=== PATIENT | male | born 1945 | race Caucasian/White ===

== ENCOUNTER 2018-12-21 15:53 | Inpatient (IN) | payer MEDICARE, OTHER ==
[~2018-12-21] VITALS: Ht 167.6 cm; Wt 79.5 kg
[2018-12-21] MEDS ORDERED: MORPHINE SULFATE 4 MG/ML CPJ (NOT FOR IM USE) IV STA (17:26)
[2018-12-21] MEDS ORDERED: METHYLPREDNISOLONE SOD SUCC 125 MG/2 ML VIAL IV STA (17:26)
[2018-12-21] MEDS ORDERED: ONDANSETRON HCL 4MG/2ML INJ IV STA (17:26)
[2018-12-21] MEDS ORDERED: IPRATROPIUM/ALBUTEROL 0.5-3(2.5)MG/3ML NEB HHN ONE (17:30)
[2018-12-21] MEDS ORDERED: FUROSEMIDE 40MG/4ML VIAL IVP ONE (17:30)
[2018-12-21] MEDS ORDERED: ASPIRIN 81MG TABLET PO ONE (17:30)
[2018-12-21] MEDS ORDERED: LEVOFLOXACIN 750MG PREMIX 150 ML IV ONE (17:30)
[2018-12-21 17:57] LABS: BG BASE EXCESS -6.5 mmol/L (-2.0-2.0); BG CARBOXYHEMOGLOBIN 2.5 % (0.5-1.5); BG DEOXYHEMOGLOBIN 5.4 % (0.0-5.0); BG FRACTION INSPIRED OXYGEN 30; BG HCO3 ACT 18.5 mmol/L (22.0-26.0); BG METHEMOGLOBIN 0.6 % (0.0-1.5); BG OXYGEN SATURATION 94.4 % (92.0-98.5); BG OXYHEMOGLOBIN 91.5 % (94.0-97.0); BG PCO2 34.3 mmHg (35.0-45.0); BG SAMPLE SITE RIGHT BRACHIAL; BG TOTAL HEMOGLOBIN 5.6 g/dL (12.0-18.0); BG VENT MODE NASAL CANNULA
[2018-12-21 18:03] LABS: BASOPHILS % 0.1 % (0.0-2.0); EOSINOPHILS % 2.4 % (0.0-5.0); MEAN CORPUSCULAR HEMOGLOBIN 22.4 pg (28.0-32.0); MEAN CORPUSCULAR VOLUME 73.6 fL (80.0-94.0); MEAN PLATELET VOLUME 7.7 fl (7.4-10.4); MONOCYTES % 9.9 % (2.0-8.0); NEUTROPHILS % 61.6 % (40.0-76.0); PLATELET 126 x1000/uL (130-400); RED BLOOD CELL COUNT 2.25 mill/uL (4.7-6.1); RED CELL DISTRIBUTION WIDTH 17.7 % (11.6-14.6)
[2018-12-21 18:05] LABS: CHLORIDE 117 mEq/L (98-107)
[2018-12-21 18:07] LABS: HEMATOCRIT. 16.5 % (42.0-52.0); INR 1.2; PARTIAL THROMBOPLASTIN TIME 32.5 sec (23.4-31.0); PROTHROMBIN TIME 11.9 sec (9.6-11.0)
[2018-12-21 18:09] LABS: ETHANOL BLOOD < 10 mg/dL
[2018-12-21 20:09] LABS: CLARITY URINE CLOUDY (CLEAR); COLOR URINE YELLOW (YELLOW); KETONES URINE NEGATIVE (NEGATIVE); LEUKOCYTE ESTERASE URINE 2+ (NEGATIVE); NITRITE URINE NEGATIVE (NEGATIVE); OCCULT BLOOD URINE NEGATIVE (NEGATIVE); PROTEIN URINE 3+ (NEGATIVE); SPECIFIC GRAVITY URINE 1.019 (1.005-1.030); UROBILINOGEN URINE 0.2 E.U./dL (0.2-1.0)
[2018-12-21 20:39] LABS: METHADONE URINE SCREEN NEGATIVE (NEGATIVE); OPIATES URINE SCREEN NEGATIVE (NEGATIVE)
[2018-12-21 20:40] LABS: *AMPHETAMINES SCREEN URINE NEGATIVE (NEGATIVE); *BARBITURATES SCREEN URINE NEGATIVE (NEGATIVE); *BENZODIAZEPINES SCREEN URINE NEGATIVE (NEGATIVE); *COCAINE SCREEN URINE NEGATIVE (NEGATIVE); CANNABINOID URINE SCREEN NEGATIVE (NEGATIVE); PHENCYCLIDINE URINE SCREEN NEGATIVE (NEGATIVE)
[2018-12-22] VITALS (14 sets, daily range): BP systolic 141–184; BP diastolic 60–123
[2018-12-22] MEDS ORDERED: ONDANSETRON HCL 4MG/2ML INJ IV PRN (01:45)
[2018-12-22] MEDS: METHYLPREDNISOLONE SOD SUCC 40 MG/ML VIAL IV SCH ×3 (06:31→21:46)
[2018-12-22 07:24] LABS: BASOPHILS % 0.3 % (0.0-2.0); EOSINOPHILS % 0.2 % (0.0-5.0); LYMPHOCYTES % 12.8 % (20.0-50.0); MEAN CORPUSCULAR HEMOGLOBIN 23.3 pg (28.0-32.0); MEAN CORPUSCULAR VOLUME 75.6 fL (80.0-94.0); MEAN PLATELET VOLUME 7.5 fl (7.4-10.4); MONOCYTES % 8.3 % (2.0-8.0); NEUTROPHILS % 78.4 % (40.0-76.0); PLATELET 131 x1000/uL (130-400); RED BLOOD CELL COUNT 2.55 mill/uL (4.7-6.1); RED CELL DISTRIBUTION WIDTH 18.5 % (11.6-14.6)
[2018-12-22 08:02] LABS: HEMOGLOBIN. 5.9 g/dL (14.0-18.0)
[2018-12-22 08:03] LABS: HEMATOCRIT. 19.3 % (42.0-52.0)
[2018-12-22] MEDS: PANTOPRAZOLE SODIUM 40 MG/VIAL IV SCH (09:00)
[2018-12-22] MEDS: IPRATROPIUM/ALBUTEROL 0.5-3(2.5)MG/3ML NEB HHN SCH ×2 (09:44→15:45)
[2018-12-22] MEDS ORDERED: SORBITOL 70% SOLN 30ML PO NR ×2 (14:00→20:00)
[2018-12-22] MEDS ORDERED: SORBITOL 70% SOLN 30ML PO ONE ×2 (14:00→20:00)
[2018-12-22] MEDS ORDERED: FUROSEMIDE 20MG/2ML VIAL IVP NR (14:00)
[2018-12-22] MEDS ORDERED: FUROSEMIDE 40MG/4ML VIAL IVP NR (14:15)
[2018-12-22] MEDS ORDERED: VANCOMYCIN 1,750 MG in DEXT 5% WATER 250 ML IV NR (16:00)
[2018-12-22] MEDS: ACETAMINOPHEN 325MG TABLET PO PRN (16:35)
[2018-12-22] MEDS ORDERED: PHEN100C4 MT (17:29)
[2018-12-22] MEDS ORDERED: SUCR1TAB30 MT (17:29)
[2018-12-22] MEDS ORDERED: LACT10SO6 MT (17:29)
[2018-12-22] MEDS ORDERED: MULT-1146 MT (17:29)
[2018-12-22] MEDS ORDERED: AMLO10TA80 MT (17:29)
[2018-12-22] MEDS ORDERED: MEDICATION NOT ON FORMULARY EA (Lactulose 15 ML) MT SCH (17:30)
[2018-12-22] MEDS ORDERED: MEDICATION NOT ON FORMULARY EA (Multivitamin (Multi Vitamin Daily) 1 TAB) MT SCH (17:30)
[2018-12-22] MEDS ORDERED: DEXTROSE 50% WATER 50ML SYRINGE IV PRN (17:45)
[2018-12-22] MEDS ORDERED: LACTULOSE 20G/30ML UDC PO PRN (17:45)
[2018-12-22] MEDS: AMLODIPINE 10MG TABLET PO SCH ×2 (17:54→20:23)
[2018-12-22] MEDS: PHENYTOIN SODIUM EXTENDED 100MG CAPSULE PO SCH (17:54)
[2018-12-22 19:29] LABS: HEPATITIS B SURFACE ANTIGEN NEGATIVE
[2018-12-22 19:59] LABS: HEPATITIS A AB IGM NEGATIVE (NEGATIVE)
[2018-12-22] MEDS ORDERED: IRON SUCROSE COMPLEX 100 MG/5 ML ML IV NR (20:00)
[2018-12-22] MEDS: SUCRALFATE 1G TABLET PO SCH (20:23)
[2018-12-22 20:46] LABS: HEMOGLOBIN 8.3 g/dL (14.0-18.0)
[2018-12-22 20:54] LABS: INR 1.1; PROTHROMBIN TIME 11.4 sec (9.6-11.0)
[2018-12-22] MEDS ORDERED: SUCRALFATE MT SCH (21:00)
[2018-12-22] MEDS: BLOOD SUGAR DIAGNOSTIC STRIP TEST SCH (21:40)
[2018-12-22] MEDS: INSULIN LISPRO 100 UNITS/ML SUBCUT SCH (21:59)
[2018-12-22] MEDS: CLONIDINE 0.1MG TABLET PO PRN (23:41)
[2018-12-23] VITALS (17 sets, daily range): BP systolic 142–168; BP diastolic 78–95
[2018-12-23] MEDS: IPRATROPIUM/ALBUTEROL 0.5-3(2.5)MG/3ML NEB HHN SCH ×3 (01:17→21:35)
[2018-12-23] MEDS: CLONIDINE 0.1MG TABLET PO PRN (04:51)
[2018-12-23] MEDS: METHYLPREDNISOLONE SOD SUCC 40 MG/ML VIAL IV SCH ×3 (06:15→22:02)
[2018-12-23] MEDS: SUCRALFATE 1G TABLET PO SCH ×4 (06:15→20:24)
[2018-12-23] MEDS: BLOOD SUGAR DIAGNOSTIC STRIP TEST SCH ×4 (06:16→20:41)
[2018-12-23] MEDS: INSULIN LISPRO 100 UNITS/ML SUBCUT SCH ×4 (07:20→20:44)
[2018-12-23 08:38] LABS: BASOPHILS % 0.1 % (0.0-2.0); EOSINOPHILS % 0.1 % (0.0-5.0); HEMATOCRIT. 30.4 % (42.0-52.0); HEMOGLOBIN. 9.8 g/dL (14.0-18.0); LYMPHOCYTES % 7.2 % (20.0-50.0); MEAN CORPUSCULAR HEMOGLOBIN 25.7 pg (28.0-32.0); MEAN CORPUSCULAR VOLUME 80.1 fL (80.0-94.0); MEAN PLATELET VOLUME 8.6 fl (7.4-10.4); MONOCYTES % 5.5 % (2.0-8.0); NEUTROPHILS % 87.1 % (40.0-76.0); PLATELET 111 x1000/uL (130-400); RED CELL DISTRIBUTION WIDTH 20.1 % (11.6-14.6)
[2018-12-23] MEDS: PANTOPRAZOLE SODIUM 40 MG/VIAL IV SCH (08:45)
[2018-12-23] MEDS ORDERED: FUROSEMIDE 40MG/4ML VIAL IVP SCH (08:45)
[2018-12-23] MEDS ORDERED: ASPI-1159 MT (10:33)
[2018-12-23 11:32] LABS: BG BILEVEL POS AIRWAY PRESSURE ST=14/5; BG CARBOXYHEMOGLOBIN 0.4 % (0.5-1.5); BG DEOXYHEMOGLOBIN 2.8 % (0.0-5.0); BG FRACTION INSPIRED OXYGEN 40; BG HCO3 ACT 19.9 mmol/L (22.0-26.0); BG METHEMOGLOBIN 0.3 % (0.0-1.5); BG OXYGEN SATURATION 97.2 % (92.0-98.5); BG OXYHEMOGLOBIN 96.5 % (94.0-97.0); BG PCO2 41.1 mmHg (35.0-45.0); BG PH 7.303 (7.350-7.450); BG PO2 101.2 mmHg (75.0-100.0); BG PRESSURE SUPPORT 9; BG SAMPLE SITE LEFT RADIAL; BG TOTAL HEMOGLOBIN 9.8 g/dL (12.0-18.0); BG VENT MODE MASK - BIPAP; BG VENT RATE 20 set
[2018-12-23] MEDS ORDERED: LIDOCAINE HCL 1% 20ML VIAL (Pyxis) INJ ONE (12:47)
[2018-12-23] MEDS ORDERED: SODIUM BICARBONATE 4% (2.4MEQ) 5ML VIAL IV ONE (12:48)
[2018-12-23] MEDS: AMLODIPINE 10MG TABLET PO SCH ×2 (14:59→20:24)
[2018-12-23] MEDS: CEFEPIME 1,000 MG in DEXTROSE 5% WATER 50 ML IV SCH (14:59)
[2018-12-23] MEDS: MULTIVITAMINS,THER W-MINERALS TABLET PO SCH (15:00)
[2018-12-23] MEDS: PHENYTOIN SODIUM EXTENDED 100MG CAPSULE PO SCH ×2 (15:00→16:53)
[2018-12-23] MEDS ORDERED: VANCOMYCIN 1 G PREMIX 200 ML IV SCH (16:00)
[2018-12-23] MEDS: VANCOMYCIN 750 MG PREMIX 150 ML IV SCH (16:54)
[2018-12-23] MEDS ORDERED: SORBITOL 70% SOLN 30ML PO NR ×2 (19:30→22:00)
[2018-12-23] MEDS: PROPRANOLOL HCL 10MG TABLET PO SCH (20:24)
[2018-12-24] VITALS (11 sets, daily range): BP systolic 121–166; BP diastolic 74–126
[2018-12-24] MEDS: CEFEPIME 1,000 MG in DEXTROSE 5% WATER 50 ML IV SCH ×2 (01:36→12:24)
[2018-12-24] MEDS: BLOOD SUGAR DIAGNOSTIC STRIP TEST SCH ×4 (06:07→20:45)
[2018-12-24] MEDS: SUCRALFATE 1G TABLET PO SCH ×4 (06:17→20:33)
[2018-12-24] MEDS: METHYLPREDNISOLONE SOD SUCC 40 MG/ML VIAL IV SCH ×3 (06:17→21:59)
[2018-12-24] MEDS: INSULIN LISPRO 100 UNITS/ML SUBCUT SCH ×4 (07:20→20:34)
[2018-12-24] MEDS: IPRATROPIUM/ALBUTEROL 0.5-3(2.5)MG/3ML NEB HHN SCH ×2 (07:51→16:26)
[2018-12-24] MEDS: AMLODIPINE 10MG TABLET PO SCH ×2 (08:50→20:32)
[2018-12-24] MEDS: PHENYTOIN SODIUM EXTENDED 100MG CAPSULE PO SCH ×2 (08:51→17:19)
[2018-12-24] MEDS: MULTIVITAMINS,THER W-MINERALS TABLET PO SCH (08:51)
[2018-12-24] MEDS: PROPRANOLOL HCL 10MG TABLET PO SCH ×2 (08:51→20:33)
[2018-12-24] MEDS: PANTOPRAZOLE SODIUM 40 MG/VIAL IV SCH (08:52)
[2018-12-24] MEDS: ACETAMINOPHEN 325MG TABLET PO PRN (08:52)
[2018-12-24] MEDS ORDERED: FUROSEMIDE 40MG/4ML VIAL IVP NR (10:00)
[2018-12-24] MEDS: ISOSORBIDE MONONITRATE 30MG TABLET SR 24HR PO SCH (10:49)
[2018-12-24 11:13] LABS: HEMATOCRIT 33.1 % (42.0-52.0); HEMOGLOBIN 10.5 g/dL (14.0-18.0); MEAN CORPUSCULAR HEMOGLOBIN 25.5 pg (28.0-32.0); MEAN CORPUSCULAR VOLUME 80.7 fL (80.0-94.0); PLATELET 106 x1000/uL (130-400); RED CELL DISTRIBUTION WIDTH 20.4 % (11.6-14.6)
[2018-12-24 11:19] LABS: CHLORIDE 118 mEq/L (98-107)
[2018-12-24] MEDS: VANCOMYCIN 750 MG PREMIX 150 ML IV SCH (12:25)
[2018-12-25] VITALS (12 sets, daily range): BP systolic 116–157; BP diastolic 73–94
[2018-12-25] MEDS: CEFEPIME 1,000 MG in DEXTROSE 5% WATER 50 ML IV SCH ×2 (01:00→12:54)
[2018-12-25] MEDS: IPRATROPIUM/ALBUTEROL 0.5-3(2.5)MG/3ML NEB HHN SCH ×3 (01:03→17:46)
[2018-12-25] MEDS: SUCRALFATE 1G TABLET PO SCH ×4 (06:26→21:59)
[2018-12-25] MEDS: METHYLPREDNISOLONE SOD SUCC 40 MG/ML VIAL IV SCH ×3 (06:26→22:00)
[2018-12-25] MEDS: VANCOMYCIN 750 MG PREMIX 150 ML IV SCH (06:26)
[2018-12-25] MEDS: BLOOD SUGAR DIAGNOSTIC STRIP TEST SCH ×4 (06:40→21:00)
[2018-12-25 07:07] LABS: CHLORIDE 116 mEq/L (98-107)
[2018-12-25 07:16] LABS: HEMATOCRIT. 31.2 % (42.0-52.0); HEMOGLOBIN. 9.8 g/dL (14.0-18.0); LYMPHOCYTES % 8.6 % (20.0-50.0); MEAN CORPUSCULAR HEMOGLOBIN 25.7 pg (28.0-32.0); MEAN CORPUSCULAR VOLUME 81.7 fL (80.0-94.0); MEAN PLATELET VOLUME 8.4 fl (7.4-10.4); MONOCYTES % 6.2 % (2.0-8.0); NEUTROPHILS % 85.2 % (40.0-76.0); PLATELET 108 x1000/uL (130-400); RED BLOOD CELL COUNT 3.82 mill/uL (4.7-6.1); RED CELL DISTRIBUTION WIDTH 20.4 % (11.6-14.6)
[2018-12-25] MEDS: INSULIN LISPRO 100 UNITS/ML SUBCUT SCH ×4 (07:20→22:03)
[2018-12-25] MEDS: PANTOPRAZOLE SODIUM 40 MG/VIAL IV SCH (08:30)
[2018-12-25] MEDS: AMLODIPINE 10MG TABLET PO SCH ×2 (09:00→22:00)
[2018-12-25] MEDS: PROPRANOLOL HCL 10MG TABLET PO SCH ×2 (09:00→22:00)
[2018-12-25] MEDS: PHENYTOIN SODIUM EXTENDED 100MG CAPSULE PO SCH ×2 (09:00→17:43)
[2018-12-25] MEDS: FUROSEMIDE 40MG/4ML VIAL IVP SCH (10:30)
[2018-12-25] MEDS: ISOSORBIDE MONONITRATE 30MG TABLET SR 24HR PO SCH (17:43)
[2018-12-25] MEDS: MULTIVITAMINS,THER W-MINERALS TABLET PO SCH (17:43)
[2018-12-25] MEDS: MORPHINE SULFATE 4 MG/ML CPJ (NOT FOR IM USE) IV PRN (21:03)
[2018-12-26] VITALS (13 sets, daily range): BP systolic 122–152; BP diastolic 49–86
[2018-12-26] MEDS: VANCOMYCIN 750 MG PREMIX 150 ML IV SCH ×2 (00:35→22:11)
[2018-12-26] MEDS: IPRATROPIUM/ALBUTEROL 0.5-3(2.5)MG/3ML NEB HHN SCH ×3 (00:49→14:24)
[2018-12-26] MEDS: CEFEPIME 1,000 MG in DEXTROSE 5% WATER 50 ML IV SCH ×2 (01:53→12:36)
[2018-12-26] MEDS: MORPHINE SULFATE 4 MG/ML CPJ (NOT FOR IM USE) IV PRN ×2 (02:02→08:39)
[2018-12-26] MEDS: METHYLPREDNISOLONE SOD SUCC 40 MG/ML VIAL IV SCH ×3 (06:23→22:11)
[2018-12-26] MEDS: SUCRALFATE 1G TABLET PO SCH ×4 (06:23→20:36)
[2018-12-26] MEDS: BLOOD SUGAR DIAGNOSTIC STRIP TEST SCH ×4 (06:28→20:31)
[2018-12-26 07:03] LABS: HEMATOCRIT. 30.2 % (42.0-52.0); HEMOGLOBIN. 9.6 g/dL (14.0-18.0); MEAN CORPUSCULAR HEMOGLOBIN 25.9 pg (28.0-32.0); MEAN CORPUSCULAR VOLUME 81.6 fL (80.0-94.0); MEAN PLATELET VOLUME 7.8 fl (7.4-10.4); PLATELET 110 x1000/uL (130-400); RED CELL DISTRIBUTION WIDTH 21.3 % (11.6-14.6)
[2018-12-26] MEDS: INSULIN LISPRO 100 UNITS/ML SUBCUT SCH ×4 (07:20→20:39)
[2018-12-26] MEDS: PANTOPRAZOLE SODIUM 40 MG/VIAL IV SCH (08:38)
[2018-12-26] MEDS: FUROSEMIDE 40MG/4ML VIAL IVP SCH (08:39)
[2018-12-26] MEDS: PHENYTOIN SODIUM EXTENDED 100MG CAPSULE PO SCH ×2 (08:39→16:48)
[2018-12-26] MEDS: ISOSORBIDE MONONITRATE 30MG TABLET SR 24HR PO SCH (08:40)
[2018-12-26] MEDS: PROPRANOLOL HCL 10MG TABLET PO SCH ×2 (08:40→20:36)
[2018-12-26] MEDS: MULTIVITAMINS,THER W-MINERALS TABLET PO SCH (08:40)
[2018-12-26] MEDS: AMLODIPINE 10MG TABLET PO SCH ×2 (08:41→20:36)
[2018-12-26] MEDS ORDERED: SODIUM BICARBONATE 4% (2.4MEQ) 5ML VIAL IV ONE (09:21)
[2018-12-26 12:14] LABS: PLATELET ESTIMATE SLIGHTLY DECREASED
[2018-12-27] VITALS (13 sets, daily range): BP systolic 119–159; BP diastolic 59–84
[2018-12-27] MEDS: IPRATROPIUM/ALBUTEROL 0.5-3(2.5)MG/3ML NEB HHN SCH ×3 (01:11→15:47)
[2018-12-27] MEDS: CEFEPIME 1,000 MG in DEXTROSE 5% WATER 50 ML IV SCH ×2 (01:20→12:18)
[2018-12-27 05:45] LABS: HEMATOCRIT. 30.3 % (42.0-52.0); HEMOGLOBIN. 9.5 g/dL (14.0-18.0); MEAN CORPUSCULAR HEMOGLOBIN 25.4 pg (28.0-32.0); MEAN CORPUSCULAR VOLUME 81.3 fL (80.0-94.0); MEAN PLATELET VOLUME 8.8 fl (7.4-10.4); PLATELET 85 x1000/uL (130-400); RED BLOOD CELL COUNT 3.73 mill/uL (4.7-6.1); RED CELL DISTRIBUTION WIDTH 21.8 % (11.6-14.6)
[2018-12-27] MEDS: METHYLPREDNISOLONE SOD SUCC 40 MG/ML VIAL IV SCH ×3 (05:59→21:04)
[2018-12-27] MEDS: SUCRALFATE 1G TABLET PO SCH ×4 (05:59→21:03)
[2018-12-27] MEDS: BLOOD SUGAR DIAGNOSTIC STRIP TEST SCH ×4 (06:00→21:00)
[2018-12-27] MEDS: INSULIN LISPRO 100 UNITS/ML SUBCUT SCH ×4 (08:38→21:05)
[2018-12-27] MEDS: ISOSORBIDE MONONITRATE 30MG TABLET SR 24HR PO SCH (08:39)
[2018-12-27] MEDS: FUROSEMIDE 40MG/4ML VIAL IVP SCH (08:39)
[2018-12-27] MEDS: MULTIVITAMINS,THER W-MINERALS TABLET PO SCH (08:39)
[2018-12-27] MEDS: PHENYTOIN SODIUM EXTENDED 100MG CAPSULE PO SCH ×2 (08:39→17:54)
[2018-12-27] MEDS: AMLODIPINE 10MG TABLET PO SCH ×2 (08:39→21:03)
[2018-12-27] MEDS: PANTOPRAZOLE SODIUM 40 MG/VIAL IV SCH (08:39)
[2018-12-27] MEDS: PROPRANOLOL HCL 10MG TABLET PO SCH ×2 (08:40→21:00)
[2018-12-27] MEDS ORDERED: DOCUSATE SODIUM 250MG CAPSULE PO PRN (10:00)
[2018-12-27] MEDS: MORPHINE SULFATE 4 MG/ML CPJ (NOT FOR IM USE) IV PRN ×2 (10:34→19:28)
[2018-12-27] MEDS: DOCUSATE SODIUM 250MG CAPSULE PO SCH ×2 (10:37→17:54)
[2018-12-27 21:33] LABS: PLATELET ESTIMATE DECREASED
[2018-12-27] MEDS: VANCOMYCIN 750 MG PREMIX 150 ML IV SCH (22:38)
[2018-12-28] VITALS (12 sets, daily range): BP systolic 136–158; BP diastolic 74–89
[2018-12-28] MEDS: IPRATROPIUM/ALBUTEROL 0.5-3(2.5)MG/3ML NEB HHN SCH ×3 (00:25→16:27)
[2018-12-28] MEDS: CEFEPIME 1,000 MG in DEXTROSE 5% WATER 50 ML IV SCH ×2 (01:01→13:36)
[2018-12-28] MEDS: METHYLPREDNISOLONE SOD SUCC 40 MG/ML VIAL IV SCH ×3 (06:07→21:16)
[2018-12-28] MEDS: SUCRALFATE 1G TABLET PO SCH ×4 (06:07→21:16)
[2018-12-28] MEDS: MORPHINE SULFATE 4 MG/ML CPJ (NOT FOR IM USE) IV PRN ×2 (06:07→21:17)
[2018-12-28] MEDS: BLOOD SUGAR DIAGNOSTIC STRIP TEST SCH ×4 (06:50→21:17)
[2018-12-28] MEDS: INSULIN LISPRO 100 UNITS/ML SUBCUT SCH ×4 (07:22→21:19)
[2018-12-28] MEDS: PANTOPRAZOLE SODIUM 40 MG/VIAL IV SCH (08:32)
[2018-12-28] MEDS: ISOSORBIDE MONONITRATE 30MG TABLET SR 24HR PO SCH (08:32)
[2018-12-28] MEDS: PHENYTOIN SODIUM EXTENDED 100MG CAPSULE PO SCH ×2 (08:32→17:22)
[2018-12-28] MEDS: DOCUSATE SODIUM 250MG CAPSULE PO SCH ×2 (08:32→17:22)
[2018-12-28] MEDS: FUROSEMIDE 40MG/4ML VIAL IVP SCH (08:32)
[2018-12-28] MEDS: PROPRANOLOL HCL 10MG TABLET PO SCH ×2 (08:33→21:17)
[2018-12-28] MEDS: AMLODIPINE 10MG TABLET PO SCH ×2 (08:34→21:17)
[2018-12-28] MEDS: MULTIVITAMINS,THER W-MINERALS TABLET PO SCH (08:34)
[2018-12-28] MEDS ORDERED: LACTULOSE 20G/30ML UDC PO NR (10:45)
[2018-12-28] MEDS: CLONIDINE 0.1MG TABLET PO PRN (17:22)
[2018-12-28] MEDS: VANCOMYCIN 750 MG PREMIX 150 ML IV SCH (23:45)
[2018-12-29] VITALS (10 sets, daily range): BP systolic 136–167; BP diastolic 72–92
[2018-12-29] MEDS: IPRATROPIUM/ALBUTEROL 0.5-3(2.5)MG/3ML NEB HHN SCH ×3 (00:26→15:39)
[2018-12-29] MEDS: ACETAMINOPHEN 325MG TABLET PO PRN (01:41)
[2018-12-29] MEDS: CEFEPIME 1,000 MG in DEXTROSE 5% WATER 50 ML IV SCH ×2 (01:41→12:12)
[2018-12-29] MEDS: BLOOD SUGAR DIAGNOSTIC STRIP TEST SCH ×2 (06:44→11:31)
[2018-12-29] MEDS: SUCRALFATE 1G TABLET PO SCH ×2 (06:44→11:30)
[2018-12-29] MEDS: METHYLPREDNISOLONE SOD SUCC 40 MG/ML VIAL IV SCH ×2 (06:44→13:44)
[2018-12-29 06:48] LABS: BASOPHILS % 0.1 % (0.0-2.0); EOSINOPHILS % 0.3 % (0.0-5.0); HEMATOCRIT. 27.8 % (42.0-52.0); HEMOGLOBIN. 8.8 g/dL (14.0-18.0); LYMPHOCYTES % 7.5 % (20.0-50.0); MEAN CORPUSCULAR VOLUME 81.8 fL (80.0-94.0); MEAN PLATELET VOLUME 7.8 fl (7.4-10.4); MONOCYTES % 6.6 % (2.0-8.0); NEUTROPHILS % 85.5 % (40.0-76.0); PLATELET 82 x1000/uL (130-400); RED CELL DISTRIBUTION WIDTH 22.5 % (11.6-14.6)
[2018-12-29] MEDS: PHENYTOIN SODIUM EXTENDED 100MG CAPSULE PO SCH (08:23)
[2018-12-29] MEDS: MULTIVITAMINS,THER W-MINERALS TABLET PO SCH (08:23)
[2018-12-29] MEDS: FUROSEMIDE 40MG/4ML VIAL IVP SCH (08:24)
[2018-12-29] MEDS: PANTOPRAZOLE SODIUM 40 MG/VIAL IV SCH (08:24)
[2018-12-29] MEDS: AMLODIPINE 10MG TABLET PO SCH (08:24)
[2018-12-29] MEDS: DOCUSATE SODIUM 250MG CAPSULE PO SCH (08:24)
[2018-12-29] MEDS: INSULIN LISPRO 100 UNITS/ML SUBCUT SCH ×2 (08:28→12:12)
[2018-12-29] MEDS: PROPRANOLOL HCL 10MG TABLET PO SCH (08:39)
[2018-12-29] MEDS: ISOSORBIDE MONONITRATE 30MG TABLET SR 24HR PO SCH (10:30)
[2018-12-29] MEDS ORDERED: SORBITOL 70% SOLN 30ML PO NR (10:45)
== END 2018-12-29 16:30 | DRG 280 ==
LOC: ER 16:21 → 8WST 18:51 → EDBEDREQ 18:59 → EDBEDREQTM 18:59 → ENRESERV 23:27 → 3WST 12-22 14:50
PROVIDERS: ADMIT Internal Medicine; ATTEND Internal Medicine
PROC: 30233N1 Transfusion of Nonautologous Red Blood Cells into Peripheral Vein, Percutaneous Approach (ICD-10-PCS; 2018-12-21)
PROC: 0W993ZZ Drainage of Right Pleural Cavity, Percutaneous Approach (ICD-10-PCS; principal; 2018-12-23)
PROC: 5A09357 Assistance with Respiratory Ventilation, Less than 24 Consecutive Hours, Continuous Positive Airway Pressure (ICD-10-PCS; 2018-12-23)
PROC: 5A09357 Assistance with Respiratory Ventilation, Less than 24 Consecutive Hours, Continuous Positive Airway Pressure (ICD-10-PCS; 2018-12-24)
PROC: 0W9G3ZZ Drainage of Peritoneal Cavity, Percutaneous Approach (ICD-10-PCS; 2018-12-25)
PROC: 0W993ZZ Drainage of Right Pleural Cavity, Percutaneous Approach (ICD-10-PCS; 2018-12-26)
DX: I21.4 Non-ST elevation (NSTEMI) myocardial infarction (principal); I50.33 Acute on chronic diastolic (congestive) heart failure; E43 Unspecified severe protein-calorie malnutrition; J18.9 Pneumonia, unspecified organism; J96.20 Acute and chronic respiratory failure, unspecified whether with hypoxia or hypercapnia; J44.1 Chronic obstructive pulmonary disease with (acute) exacerbation; N39.0 Urinary tract infection, site not specified; R18.8 Other ascites; I13.0 Hypertensive heart and chronic kidney disease with heart failure and stage 1 through stage 4 chronic kidney disease, or unspecified chronic kidney disease; J44.0 Chronic obstructive pulmonary disease with (acute) lower respiratory infection; N17.9 Acute kidney failure, unspecified; K92.2 Gastrointestinal hemorrhage, unspecified; J91.8 Pleural effusion in other conditions classified elsewhere; K74.60 Unspecified cirrhosis of liver; B18.2 Chronic viral hepatitis C; D64.9 Anemia, unspecified; N18.9 Chronic kidney disease, unspecified; D50.9 Iron deficiency anemia, unspecified; D69.6 Thrombocytopenia, unspecified; E11.22 Type 2 diabetes mellitus with diabetic chronic kidney disease; E78.00 Pure hypercholesterolemia, unspecified; E78.5 Hyperlipidemia, unspecified; E87.8 Other disorders of electrolyte and fluid balance, not elsewhere classified; F20.9 Schizophrenia, unspecified; F31.9 Bipolar disorder, unspecified; I27.20 Pulmonary hypertension, unspecified; B96.4 Proteus (mirabilis) (morganii) as the cause of diseases classified elsewhere; K21.9 Gastro-esophageal reflux disease without esophagitis; N40.0 Benign prostatic hyperplasia without lower urinary tract symptoms; Y95 Nosocomial condition; Z79.84 Long term (current) use of oral hypoglycemic drugs; Z99.81 Dependence on supplemental oxygen; Z87.891 Personal history of nicotine dependence; Z68.28 Body mass index [BMI] 28.0-28.9, adult
CPT/HCPCS: 32555; 36415; 36600; 49083; 71045; 71250; 76705; 80048; 80076; 80202; 80305; 80320; 82375; 82805; 82962; 83540; 83550; 83605; 83735; 83880; 84134; 84484; 85014; 85018; 85027; 85049; 85384; 86705; 86709; 86803; 86850; 86900; 86920; 87070; 87077; 87186; 87340; 93005; 93306; 93970; 94640; 94660; 96365; 96366; 96375; 99285; C9113; J0692; J1815; J1940; J1956; J2270; J2405; J2920; J2930; J3370; J3490; J7040; J7050; J7060; J7620; P9016; G0480

== ENCOUNTER 2019-01-12 08:28 | Inpatient (IN) | payer MEDICARE, OTHER ==
[~2019-01-12] VITALS: Ht 172.7 cm; Wt 78.5 kg
[2019-01-12] VITALS (48 sets, daily range): BP systolic 115–184; BP diastolic 47–98
[~2019-01-12 08:28] MED LIST: AMLO10TA80 MT; ASPI-1159 MT; LACT10SO6 MT; MULT-1146 MT; PHEN100C4 MT; SUCR1TAB30 MT
[2019-01-12] MEDS ORDERED: ATROPINE SULFATE 1MG/10ML SYR ONE (08:32)
[2019-01-12] MEDS ORDERED: SODIUM CHLORIDE 0.9% 1,000 ML IV ONE (08:36)
[2019-01-12] MEDS ORDERED: DOPAMINE 400MG/250ML PREMIX 250 ML IV PRN ×2 (08:36→11:30)
[2019-01-12] MEDS ORDERED: ALBUTEROL (0.083%) 2.5MG/3ML NEB HHN STA (08:36)
[2019-01-12] MEDS ORDERED: ATROPINE SULFATE 1MG/ML VIAL IV PRN (08:45)
[2019-01-12] MEDS ORDERED: CALCIUM GLUCONATE 1,000 MG in DEXT 5% WATER 100 ML IV ONE (08:45)
[2019-01-12] MEDS ORDERED: CEFTRIAXONE 2 G PREMIX 50 ML IV ONE (08:45)
[2019-01-12] MEDS ORDERED: SODIUM BICARBONATE 8.4% 1 MEQ/ML 50ML SYR IV ONE (08:45)
[2019-01-12] MEDS ORDERED: PIPERACILLIN/TAZOBACTAM 3.375GM/50ML PREMIX IV ONE (09:00)
[2019-01-12 09:07] LABS: BG BASE EXCESS -7.9 mmol/L (-2.0-2.0); BG CARBOXYHEMOGLOBIN 2.1 % (0.5-1.5); BG DEOXYHEMOGLOBIN 0.2 % (0.0-5.0); BG HCO3 ACT 23.5 mmol/L (22.0-26.0); BG METHEMOGLOBIN 0.6 % (0.0-1.5); BG OXYGEN SATURATION 99.8 % (92.0-98.5); BG OXYHEMOGLOBIN 97.1 % (94.0-97.0); BG PCO2 90.6 mmHg (35.0-45.0); BG PH 7.032 (7.350-7.450); BG PO2 410.4 mmHg (75.0-100.0); BG SAMPLE SITE RIGHT RADIAL; BG TOTAL HEMOGLOBIN 9.6 g/dL (12.0-18.0); BG VENT MODE MASK - NRB
[2019-01-12 09:07] LABS: BASOPHILS % 0.6 % (0.0-2.0); EOSINOPHILS % 0.3 % (0.0-5.0); HEMATOCRIT. 31.3 % (42.0-52.0); HEMOGLOBIN. 9.5 g/dL (14.0-18.0); LYMPHOCYTES % 13.7 % (20.0-50.0); MEAN CORPUSCULAR HEMOGLOBIN 25.6 pg (28.0-32.0); MEAN CORPUSCULAR VOLUME 84.2 fL (80.0-94.0); MEAN PLATELET VOLUME 7.3 fl (7.4-10.4); NEUTROPHILS % 80.4 % (40.0-76.0); PLATELET 135 x1000/uL (130-400); RED BLOOD CELL COUNT 3.72 mill/uL (4.7-6.1); RED CELL DISTRIBUTION WIDTH 24.8 % (11.6-14.6)
[2019-01-12 09:13] LABS: CHLORIDE 113 mEq/L (98-107)
[2019-01-12] MEDS ORDERED: PIPERACILLIN/TAZ 3.375G PREMIX 50 ML IV SCH ×2 (09:15→14:00)
[2019-01-12 09:18] LABS: ETHANOL BLOOD < 10 mg/dL; PROTHROMBIN TIME 10.3 sec (9.6-11.0)
[2019-01-12 09:19] LABS: PHOSPHORUS 7.7 mg/dL (2.5-4.9)
[2019-01-12 09:25] LABS: *AMPHETAMINES SCREEN URINE NEGATIVE (NEGATIVE); *BARBITURATES SCREEN URINE NEGATIVE (NEGATIVE); *BENZODIAZEPINES SCREEN URINE NEGATIVE (NEGATIVE); *COCAINE SCREEN URINE NEGATIVE (NEGATIVE); METHADONE URINE SCREEN NEGATIVE (NEGATIVE)
[2019-01-12 09:26] LABS: CANNABINOID URINE SCREEN NEGATIVE (NEGATIVE); OPIATES URINE SCREEN NEGATIVE (NEGATIVE); PHENCYCLIDINE URINE SCREEN NEGATIVE (NEGATIVE)
[2019-01-12] MEDS ORDERED: LIDOCAINE HCL 1% 20ML VIAL (Pyxis) INJ ONE (09:42)
[2019-01-12 09:54] LABS: PLATELET ESTIMATE NORMAL
[2019-01-12] MEDS ORDERED: ONDANSETRON HCL 4MG/2ML INJ IV PRN (11:30)
[2019-01-12] MEDS ORDERED: VANCOMYCIN 1500MG in DEXTROSE 5% WATER 250ML IV SCH (13:00)
[2019-01-12 13:03] LABS: BG BASE EXCESS -8.2 mmol/L (-2.0-2.0); BG BILEVEL POS AIRWAY PRESSURE ST=15/5; BG CARBOXYHEMOGLOBIN 1.9 % (0.5-1.5); BG DEOXYHEMOGLOBIN 1.9 % (0.0-5.0); BG FRACTION INSPIRED OXYGEN 40; BG HCO3 ACT 23.2 mmol/L (22.0-26.0); BG METHEMOGLOBIN 0.3 % (0.0-1.5); BG OXYGEN SATURATION 98.1 % (92.0-98.5); BG OXYHEMOGLOBIN 95.9 % (94.0-97.0); BG PCO2 85.3 mmHg (35.0-45.0); BG PH 7.052 (7.350-7.450); BG PO2 113.1 mmHg (75.0-100.0); BG PRESSURE SUPPORT 10; BG SAMPLE SITE LEFT RADIAL; BG TOTAL HEMOGLOBIN 10.7 g/dL (12.0-18.0); BG VENT MODE MASK - BIPAP; BG VENT RATE 20 set
[2019-01-12] MEDS: SODIUM CHLORIDE 0.9% 1,000 ML IV SCH (13:27)
[2019-01-12] MEDS: FUROSEMIDE 40MG/4ML VIAL IVP SCH (14:21)
[2019-01-12] MEDS: LACTULOSE 20G/30ML UDC PO SCH ×2 (14:21→22:19)
[2019-01-12] MEDS: PIPERACILLIN/TAZ 2.25G PREMIX 50 ML IV SCH ×2 (14:22→17:28)
[2019-01-12] MEDS ORDERED: METHYLPREDNISOLONE SOD SUCC 125 MG/2 ML VIAL IV SCH (14:30)
[2019-01-12 17:22] LABS: BG BASE EXCESS -10.7 mmol/L (-2.0-2.0); BG BILEVEL POS AIRWAY PRESSURE ST=18/5; BG CARBOXYHEMOGLOBIN 1.5 % (0.5-1.5); BG DEOXYHEMOGLOBIN 1.8 % (0.0-5.0); BG FRACTION INSPIRED OXYGEN 40; BG HCO3 ACT 20.4 mmol/L (22.0-26.0); BG METHEMOGLOBIN 0.5 % (0.0-1.5); BG OXYGEN SATURATION 98.2 % (92.0-98.5); BG OXYHEMOGLOBIN 96.2 % (94.0-97.0); BG PCO2 78.1 mmHg (35.0-45.0); BG PH 7.035 (7.350-7.450); BG PO2 119.8 mmHg (75.0-100.0); BG PRESSURE SUPPORT 13; BG SAMPLE SITE LEFT BRACHIAL; BG TOTAL HEMOGLOBIN 10.2 g/dL (12.0-18.0); BG VENT MODE MASK - BIPAP; BG VENT RATE 20 set
[2019-01-12] MEDS: IPRATROPIUM/ALBUTEROL 0.5-3(2.5)MG/3ML NEB HHN SCH ×2 (17:37→20:18)
[2019-01-12] MEDS: METHYLPREDNISOLONE SOD SUCC 40 MG/ML VIAL IV SCH (22:19)
[2019-01-13] VITALS (72 sets, daily range): BP systolic 105–145; BP diastolic 31–111
[2019-01-13] MEDS: IPRATROPIUM/ALBUTEROL 0.5-3(2.5)MG/3ML NEB HHN SCH ×6 (00:49→20:54)
[2019-01-13] MEDS: PIPERACILLIN/TAZ 2.25G PREMIX 50 ML IV SCH ×5 (01:38→23:51)
[2019-01-13] MEDS: HYDROCODONE/ACETAMINOPHEN 5/325MG TABLET PO PRN ×2 (01:43→08:59)
[2019-01-13 05:58] LABS: EOSINOPHILS % 0.2 % (0.0-5.0); HEMATOCRIT. 25.6 % (42.0-52.0); HEMOGLOBIN. 8.2 g/dL (14.0-18.0); LYMPHOCYTES % 7.7 % (20.0-50.0); MEAN CORPUSCULAR HEMOGLOBIN 26.3 pg (28.0-32.0); MEAN PLATELET VOLUME 7.8 fl (7.4-10.4); MONOCYTES % 2.5 % (2.0-8.0); NEUTROPHILS % 89.6 % (40.0-76.0); PLATELET 85 x1000/uL (130-400); RED BLOOD CELL COUNT 3.12 mill/uL (4.7-6.1); RED CELL DISTRIBUTION WIDTH 24.2 % (11.6-14.6)
[2019-01-13] MEDS: METHYLPREDNISOLONE SOD SUCC 40 MG/ML VIAL IV SCH ×3 (06:26→21:50)
[2019-01-13] MEDS: LACTULOSE 20G/30ML UDC PO SCH ×3 (06:26→21:50)
[2019-01-13] MEDS: FUROSEMIDE 40MG/4ML VIAL IVP SCH (08:17)
[2019-01-13] MEDS: SODIUM CHLORIDE 0.9% 1,000 ML IV SCH (08:18)
[2019-01-13 09:26] LABS: BG BASE EXCESS -5.4 mmol/L (-2.0-2.0); BG BILEVEL POS AIRWAY PRESSURE ST=18/5; BG CARBOXYHEMOGLOBIN 0.7 % (0.5-1.5); BG DEOXYHEMOGLOBIN 1.6 % (0.0-5.0); BG FRACTION INSPIRED OXYGEN 40; BG HCO3 ACT 20.1 mmol/L (22.0-26.0); BG METHEMOGLOBIN 0.3 % (0.0-1.5); BG OXYGEN SATURATION 98.4 % (92.0-98.5); BG OXYHEMOGLOBIN 97.4 % (94.0-97.0); BG PCO2 39.2 mmHg (35.0-45.0); BG PH 7.328 (7.350-7.450); BG PO2 107.6 mmHg (75.0-100.0); BG PRESSURE SUPPORT 13; BG SAMPLE SITE RIGHT RADIAL; BG TOTAL HEMOGLOBIN 8.8 g/dL (12.0-18.0); BG VENT MODE MASK - BIPAP; BG VENT RATE 20 set
[2019-01-13] MEDS ORDERED: PROP10TA10 MT (10:55)
[2019-01-13] MEDS ORDERED: PROT40 MT (10:55)
[2019-01-13] MEDS ORDERED: FURO-151 MT (10:55)
[2019-01-13] MEDS ORDERED: ISOS20TA57 PO (10:55)
[2019-01-13] MEDS ORDERED: DOCU250C14 MT (10:55)
[2019-01-13] MEDS: ISOSORBIDE MONONITRATE 30MG TABLET SR 24HR PO SCH (12:00)
[2019-01-13] MEDS: PROPRANOLOL HCL 10MG TABLET PO SCH ×2 (12:00→21:51)
[2019-01-13] MEDS ORDERED: SODIUM BICARBONATE 4% (2.4MEQ) 5ML VIAL IV ONE (13:07)
[2019-01-13] MEDS: PANTOPRAZOLE 40MG DR TABLET PO SCH (13:11)
[2019-01-13] MEDS: PHENYTOIN SODIUM EXTENDED 100MG CAPSULE PO SCH ×2 (13:11→21:50)
[2019-01-13] MEDS ORDERED: VANCOMYCIN 1 G PREMIX 200 ML IV SCH (14:00)
[2019-01-13] MEDS ORDERED: DOCUSATE SODIUM 250MG CAPSULE PO SCH (18:00)
[2019-01-14] VITALS (53 sets, daily range): BP systolic 128–177; BP diastolic 35–119
[2019-01-14] MEDS: IPRATROPIUM/ALBUTEROL 0.5-3(2.5)MG/3ML NEB HHN SCH ×6 (00:29→20:17)
[2019-01-14] MEDS: SODIUM CHLORIDE 0.9% 1,000 ML IV SCH (04:35)
[2019-01-14] MEDS: LACTULOSE 20G/30ML UDC PO SCH ×2 (05:54→23:57)
[2019-01-14] MEDS: METHYLPREDNISOLONE SOD SUCC 40 MG/ML VIAL IV SCH ×3 (05:54→21:37)
[2019-01-14] MEDS: PIPERACILLIN/TAZ 2.25G PREMIX 50 ML IV SCH ×4 (05:54→23:57)
[2019-01-14 06:13] LABS: HEMATOCRIT. 23.7 % (42.0-52.0); HEMOGLOBIN. 7.7 g/dL (14.0-18.0); MEAN CORPUSCULAR HEMOGLOBIN 26.8 pg (28.0-32.0); MEAN CORPUSCULAR VOLUME 82.4 fL (80.0-94.0); MEAN PLATELET VOLUME 8.4 fl (7.4-10.4); PLATELET 123 x1000/uL (130-400); RED BLOOD CELL COUNT 2.87 mill/uL (4.7-6.1); RED CELL DISTRIBUTION WIDTH 26.5 % (11.6-14.6)
[2019-01-14] MEDS: HYDROCODONE/ACETAMINOPHEN 5/325MG TABLET PO PRN (06:14)
[2019-01-14 07:23] LABS: PLATELET ESTIMATE SLIGHTLY DECREASED
[2019-01-14 08:00] LABS: BG BASE EXCESS -7.7 mmol/L (-2.0-2.0); BG CARBOXYHEMOGLOBIN 0.8 % (0.5-1.5); BG DEOXYHEMOGLOBIN 4.3 % (0.0-5.0); BG FRACTION INSPIRED OXYGEN 30; BG HCO3 ACT 19.4 mmol/L (22.0-26.0); BG METHEMOGLOBIN 0.4 % (0.0-1.5); BG OXYGEN SATURATION 95.6 % (92.0-98.5); BG OXYHEMOGLOBIN 94.5 % (94.0-97.0); BG PCO2 47.1 mmHg (35.0-45.0); BG PH 7.232 (7.350-7.450); BG PO2 87.6 mmHg (75.0-100.0); BG SAMPLE SITE RIGHT RADIAL; BG TOTAL HEMOGLOBIN 8.8 g/dL (12.0-18.0); BG VENT MODE NASAL CANNULA
[2019-01-14] MEDS: DOCUSATE SODIUM 250MG CAPSULE PO SCH ×2 (08:58→21:38)
[2019-01-14] MEDS ORDERED: DEXTROSE 50% WATER 50ML SYRINGE IV PRN (09:00)
[2019-01-14] MEDS: BLOOD SUGAR DIAGNOSTIC STRIP TEST SCH ×4 (09:00→21:38)
[2019-01-14] MEDS: PHENYTOIN SODIUM EXTENDED 100MG CAPSULE PO SCH ×2 (09:23→21:38)
[2019-01-14] MEDS: FUROSEMIDE 40MG/4ML VIAL IVP SCH (09:23)
[2019-01-14] MEDS: PANTOPRAZOLE 40MG DR TABLET PO SCH (09:23)
[2019-01-14] MEDS: PROPRANOLOL HCL 10MG TABLET PO SCH ×2 (09:23→21:37)
[2019-01-14] MEDS: ISOSORBIDE MONONITRATE 30MG TABLET SR 24HR PO SCH (09:24)
[2019-01-14] MEDS: MULTIVITAMINS,THER W-MINERALS TABLET PO SCH (09:24)
[2019-01-14] MEDS: AMLODIPINE 10MG TABLET PO SCH (09:24)
[2019-01-14] MEDS: INSULIN LISPRO 100 UNITS/ML SUBCUT SCH ×4 (09:33→22:52)
[2019-01-14] MEDS ORDERED: VANCOMYCIN 1 G PREMIX 200 ML IV SCH (14:00)
[2019-01-14] MEDS ORDERED: LACTULOSE 20G/30ML UDC PO SCH (20:00)
[2019-01-15] VITALS (20 sets, daily range): BP systolic 114–156; BP diastolic 64–91
[2019-01-15] MEDS: IPRATROPIUM/ALBUTEROL 0.5-3(2.5)MG/3ML NEB HHN SCH ×5 (00:18→16:17)
[2019-01-15 05:23] LABS: BASOPHILS % 0.5 % (0.0-2.0); HEMATOCRIT. 24.4 % (42.0-52.0); HEMOGLOBIN. 7.6 g/dL (14.0-18.0); MEAN CORPUSCULAR HEMOGLOBIN 25.7 pg (28.0-32.0); MEAN CORPUSCULAR VOLUME 82.1 fL (80.0-94.0); MEAN PLATELET VOLUME 8.5 fl (7.4-10.4); MONOCYTES % 7.7 % (2.0-8.0); NEUTROPHILS % 75.8 % (40.0-76.0); PLATELET 83 x1000/uL (130-400); RED BLOOD CELL COUNT 2.97 mill/uL (4.7-6.1); RED CELL DISTRIBUTION WIDTH 26.3 % (11.6-14.6)
[2019-01-15] MEDS: PIPERACILLIN/TAZ 2.25G PREMIX 50 ML IV SCH ×3 (06:25→17:54)
[2019-01-15] MEDS: METHYLPREDNISOLONE SOD SUCC 40 MG/ML VIAL IV SCH ×3 (06:25→21:09)
[2019-01-15] MEDS: LACTULOSE 20G/30ML UDC PO SCH ×3 (06:25→17:54)
[2019-01-15] MEDS: INSULIN LISPRO 100 UNITS/ML SUBCUT SCH ×4 (06:52→21:18)
[2019-01-15] MEDS: BLOOD SUGAR DIAGNOSTIC STRIP TEST SCH ×4 (07:45→21:11)
[2019-01-15 08:45] LABS: BG BASE EXCESS -5.9 mmol/L (-2.0-2.0); BG CARBOXYHEMOGLOBIN 0.9 % (0.5-1.5); BG DEOXYHEMOGLOBIN 1.4 % (0.0-5.0); BG FRACTION INSPIRED OXYGEN 28; BG HCO3 ACT 20.6 mmol/L (22.0-26.0); BG METHEMOGLOBIN 0.3 % (0.0-1.5); BG OXYGEN SATURATION 98.6 % (92.0-98.5); BG OXYHEMOGLOBIN 97.4 % (94.0-97.0); BG PCO2 45.7 mmHg (35.0-45.0); BG PH 7.272 (7.350-7.450); BG PO2 132.4 mmHg (75.0-100.0); BG SAMPLE SITE RIGHT RADIAL; BG TOTAL HEMOGLOBIN 8.1 g/dL (12.0-18.0); BG VENT MODE NASAL CANNULA
[2019-01-15] MEDS: PANTOPRAZOLE 40MG DR TABLET PO SCH (08:46)
[2019-01-15] MEDS: PHENYTOIN SODIUM EXTENDED 100MG CAPSULE PO SCH ×2 (08:46→21:11)
[2019-01-15] MEDS: DOCUSATE SODIUM 250MG CAPSULE PO SCH ×2 (08:46→21:00)
[2019-01-15] MEDS: MULTIVITAMINS,THER W-MINERALS TABLET PO SCH (08:46)
[2019-01-15] MEDS: AMLODIPINE 10MG TABLET PO SCH (08:47)
[2019-01-15] MEDS: ISOSORBIDE MONONITRATE 30MG TABLET SR 24HR PO SCH (08:47)
[2019-01-15] MEDS: PROPRANOLOL HCL 10MG TABLET PO SCH ×2 (08:48→21:10)
[2019-01-15] MEDS: SODIUM CHLORIDE 0.9% 1,000 ML IV SCH ×2 (08:55→22:05)
[2019-01-16] VITALS (10 sets, daily range): BP systolic 127–169; BP diastolic 73–100
[2019-01-16] MEDS: PIPERACILLIN/TAZ 2.25G PREMIX 50 ML IV SCH ×4 (00:22→19:22)
[2019-01-16] MEDS: IPRATROPIUM/ALBUTEROL 0.5-3(2.5)MG/3ML NEB HHN SCH ×5 (04:42→19:55)
[2019-01-16] MEDS: METHYLPREDNISOLONE SOD SUCC 40 MG/ML VIAL IV SCH ×3 (05:15→21:12)
[2019-01-16] MEDS: LACTULOSE 20G/30ML UDC PO SCH ×4 (05:19→18:00)
[2019-01-16] MEDS: BLOOD SUGAR DIAGNOSTIC STRIP TEST SCH ×4 (06:43→21:12)
[2019-01-16] MEDS: DOCUSATE SODIUM 250MG CAPSULE PO SCH ×2 (09:00→21:00)
[2019-01-16] MEDS: AMLODIPINE 10MG TABLET PO SCH (09:16)
[2019-01-16] MEDS: PROPRANOLOL HCL 10MG TABLET PO SCH ×2 (09:16→21:12)
[2019-01-16] MEDS: PHENYTOIN SODIUM EXTENDED 100MG CAPSULE PO SCH ×2 (09:16→21:12)
[2019-01-16] MEDS: ISOSORBIDE MONONITRATE 30MG TABLET SR 24HR PO SCH (09:16)
[2019-01-16] MEDS: INSULIN LISPRO 100 UNITS/ML SUBCUT SCH ×4 (09:17→21:25)
[2019-01-16] MEDS: MULTIVITAMINS,THER W-MINERALS TABLET PO SCH (09:17)
[2019-01-16] MEDS: PANTOPRAZOLE 40MG DR TABLET PO SCH (09:18)
[2019-01-16] MEDS: SODIUM CHLORIDE 0.9% 1,000 ML IV SCH (12:22)
[2019-01-16 12:50] LABS: BASOPHILS % 0.2 % (0.0-2.0); HEMATOCRIT. 25.3 % (42.0-52.0); LYMPHOCYTES % 7.3 % (20.0-50.0); MEAN CORPUSCULAR HEMOGLOBIN 26.2 pg (28.0-32.0); MEAN CORPUSCULAR VOLUME 83.1 fL (80.0-94.0); MEAN PLATELET VOLUME 7.1 fl (7.4-10.4); MONOCYTES % 6.3 % (2.0-8.0); NEUTROPHILS % 86.2 % (40.0-76.0); PLATELET 85 x1000/uL (130-400); RED BLOOD CELL COUNT 3.04 mill/uL (4.7-6.1); RED CELL DISTRIBUTION WIDTH 25.7 % (11.6-14.6)
[2019-01-16 13:06] LABS: PHOSPHORUS 5.1 mg/dL (2.5-4.9)
[2019-01-16 13:11] LABS: CREATINE KINASE MB FRACTION 1.8 ng/mL (0.5-3.6)
[2019-01-16 15:10] LABS: CLARITY URINE TURBID (CLEAR); COLOR URINE YELLOW (YELLOW); KETONES URINE NEGATIVE (NEGATIVE); LEUKOCYTE ESTERASE URINE 2+ (NEGATIVE); NITRITE URINE NEGATIVE (NEGATIVE); OCCULT BLOOD URINE 3+ (NEGATIVE); PROTEIN URINE 3+ (NEGATIVE); UROBILINOGEN URINE 0.2 E.U./dL (0.2-1.0)
[2019-01-17] VITALS (12 sets, daily range): BP systolic 115–157; BP diastolic 65–94
[2019-01-17] MEDS: PIPERACILLIN/TAZ 2.25G PREMIX 50 ML IV SCH ×5 (00:08→23:38)
[2019-01-17] MEDS: IPRATROPIUM/ALBUTEROL 0.5-3(2.5)MG/3ML NEB HHN SCH ×6 (01:02→20:42)
[2019-01-17] MEDS: LACTULOSE 20G/30ML UDC PO SCH ×5 (05:56→23:38)
[2019-01-17] MEDS: METHYLPREDNISOLONE SOD SUCC 40 MG/ML VIAL IV SCH ×3 (05:56→21:26)
[2019-01-17 06:22] LABS: HEMOGLOBIN. 8.2 g/dL (14.0-18.0); MEAN CORPUSCULAR HEMOGLOBIN 26.1 pg (28.0-32.0); MEAN CORPUSCULAR VOLUME 83.1 fL (80.0-94.0); MEAN PLATELET VOLUME 7.1 fl (7.4-10.4); PLATELET 99 x1000/uL (130-400); RED BLOOD CELL COUNT 3.12 mill/uL (4.7-6.1); RED CELL DISTRIBUTION WIDTH 25.7 % (11.6-14.6)
[2019-01-17] MEDS: BLOOD SUGAR DIAGNOSTIC STRIP TEST SCH ×4 (06:34→21:25)
[2019-01-17] MEDS: PANTOPRAZOLE 40MG DR TABLET PO SCH (08:25)
[2019-01-17] MEDS: PHENYTOIN SODIUM EXTENDED 100MG CAPSULE PO SCH ×2 (08:25→21:24)
[2019-01-17] MEDS: AMLODIPINE 10MG TABLET PO SCH (08:25)
[2019-01-17] MEDS: MULTIVITAMINS,THER W-MINERALS TABLET PO SCH (08:25)
[2019-01-17] MEDS: ISOSORBIDE MONONITRATE 30MG TABLET SR 24HR PO SCH (08:25)
[2019-01-17] MEDS: INSULIN LISPRO 100 UNITS/ML SUBCUT SCH ×4 (08:26→21:26)
[2019-01-17] MEDS: DOCUSATE SODIUM 250MG CAPSULE PO SCH ×2 (08:26→21:25)
[2019-01-17] MEDS: SODIUM CHLORIDE 0.9% 1,000 ML IV SCH (08:33)
[2019-01-17] MEDS: PROPRANOLOL HCL 10MG TABLET PO SCH ×2 (08:34→21:24)
[2019-01-17] MEDS ORDERED: SODIUM POLYSTYRENE SULFONATE 15 G/60 ML BOT PO SCH (10:30)
[2019-01-17 10:36] LABS: PLATELET ESTIMATE DECREASED
[2019-01-17 11:19] LABS: PHOSPHORUS 5.8 mg/dL (2.5-4.9)
[2019-01-18] VITALS (12 sets, daily range): BP systolic 107–153; BP diastolic 62–88
[2019-01-18] MEDS: IPRATROPIUM/ALBUTEROL 0.5-3(2.5)MG/3ML NEB HHN SCH ×6 (00:01→20:34)
[2019-01-18 06:01] LABS: HEMATOCRIT. 26.1 % (42.0-52.0); HEMOGLOBIN. 8.2 g/dL (14.0-18.0); MEAN CORPUSCULAR HEMOGLOBIN 26.6 pg (28.0-32.0); MEAN CORPUSCULAR VOLUME 84.1 fL (80.0-94.0); MEAN PLATELET VOLUME 7.1 fl (7.4-10.4); PLATELET 116 x1000/uL (130-400); RED CELL DISTRIBUTION WIDTH 25.4 % (11.6-14.6)
[2019-01-18] MEDS: PIPERACILLIN/TAZ 2.25G PREMIX 50 ML IV SCH ×4 (06:27→23:33)
[2019-01-18] MEDS: LACTULOSE 20G/30ML UDC PO SCH ×4 (06:27→23:33)
[2019-01-18] MEDS: PANTOPRAZOLE 40MG DR TABLET PO SCH (06:27)
[2019-01-18] MEDS: METHYLPREDNISOLONE SOD SUCC 40 MG/ML VIAL IV SCH ×3 (06:27→21:24)
[2019-01-18] MEDS: SODIUM CHLORIDE 0.9% 1,000 ML IV SCH (06:28)
[2019-01-18] MEDS: BLOOD SUGAR DIAGNOSTIC STRIP TEST SCH ×4 (08:24→21:25)
[2019-01-18] MEDS: MULTIVITAMINS,THER W-MINERALS TABLET PO SCH (10:00)
[2019-01-18] MEDS: PHENYTOIN SODIUM EXTENDED 100MG CAPSULE PO SCH ×2 (10:00→21:25)
[2019-01-18] MEDS: ISOSORBIDE MONONITRATE 30MG TABLET SR 24HR PO SCH (10:00)
[2019-01-18] MEDS: DOCUSATE SODIUM 250MG CAPSULE PO SCH ×2 (10:00→21:00)
[2019-01-18] MEDS: PROPRANOLOL HCL 10MG TABLET PO SCH ×2 (10:01→21:25)
[2019-01-18] MEDS: INSULIN LISPRO 100 UNITS/ML SUBCUT SCH ×4 (10:04→21:25)
[2019-01-18] MEDS: AMLODIPINE 10MG TABLET PO SCH (10:12)
[2019-01-18 10:28] LABS: INR 1.1; PARTIAL THROMBOPLASTIN TIME 29.8 sec (23.4-31.0); PROTHROMBIN TIME 11.3 sec (9.6-11.0)
[2019-01-18 10:41] LABS: PLATELET ESTIMATE DECREASED
[2019-01-18 11:34] LABS: HEPATITIS B SURFACE AB < 3.1 mIU/mL
[2019-01-18 11:45] LABS: HEPATITIS B SURFACE ANTIGEN NEGATIVE
[2019-01-18 12:14] LABS: HEPATITIS A AB IGM NEGATIVE (NEGATIVE)
[2019-01-19] VITALS (16 sets, daily range): BP systolic 109–145; BP diastolic 50–95
[2019-01-19] MEDS: IPRATROPIUM/ALBUTEROL 0.5-3(2.5)MG/3ML NEB HHN SCH ×6 (00:13→20:08)
[2019-01-19] MEDS: PIPERACILLIN/TAZ 2.25G PREMIX 50 ML IV SCH ×3 (06:37→18:40)
[2019-01-19] MEDS: SODIUM CHLORIDE 0.9% 1,000 ML IV SCH (06:37)
[2019-01-19] MEDS: METHYLPREDNISOLONE SOD SUCC 40 MG/ML VIAL IV SCH ×3 (06:37→21:27)
[2019-01-19] MEDS: PANTOPRAZOLE 40MG DR TABLET PO SCH ×2 (06:37→09:24)
[2019-01-19] MEDS: LACTULOSE 20G/30ML UDC PO SCH ×4 (06:37→23:19)
[2019-01-19 07:21] LABS: EOSINOPHILS % 0.3 % (0.0-5.0); HEMATOCRIT. 21.4 % (42.0-52.0); LYMPHOCYTES % 11.7 % (20.0-50.0); MEAN CORPUSCULAR HEMOGLOBIN 26.1 pg (28.0-32.0); MEAN CORPUSCULAR VOLUME 81.6 fL (80.0-94.0); MEAN PLATELET VOLUME 7.4 fl (7.4-10.4); MONOCYTES % 8.8 % (2.0-8.0); NEUTROPHILS % 79.2 % (40.0-76.0); PLATELET 86 x1000/uL (130-400); RED BLOOD CELL COUNT 2.63 mill/uL (4.7-6.1); RED CELL DISTRIBUTION WIDTH 27.1 % (11.6-14.6)
[2019-01-19 07:40] LABS: HEMOGLOBIN. 6.9 g/dL (14.0-18.0)
[2019-01-19] MEDS: BLOOD SUGAR DIAGNOSTIC STRIP TEST SCH ×4 (08:10→21:28)
[2019-01-19] MEDS: MULTIVITAMINS,THER W-MINERALS TABLET PO SCH (09:23)
[2019-01-19] MEDS: ACETAMINOPHEN 325MG TABLET PO PRN (09:23)
[2019-01-19] MEDS: AMLODIPINE 10MG TABLET PO SCH (09:24)
[2019-01-19] MEDS: PHENYTOIN SODIUM EXTENDED 100MG CAPSULE PO SCH ×2 (09:24→21:27)
[2019-01-19] MEDS: INSULIN LISPRO 100 UNITS/ML SUBCUT SCH ×4 (09:26→21:29)
[2019-01-19] MEDS: DOCUSATE SODIUM 250MG CAPSULE PO SCH ×2 (10:01→21:00)
[2019-01-19] MEDS: ISOSORBIDE MONONITRATE 30MG TABLET SR 24HR PO SCH (10:01)
[2019-01-19] MEDS: PROPRANOLOL HCL 10MG TABLET PO SCH ×2 (10:01→21:28)
[2019-01-20] VITALS (12 sets, daily range): BP systolic 120–174; BP diastolic 68–95
[2019-01-20] MEDS: IPRATROPIUM/ALBUTEROL 0.5-3(2.5)MG/3ML NEB HHN SCH ×4 (00:18→20:14)
[2019-01-20] MEDS: LACTULOSE 20G/30ML UDC PO SCH ×4 (05:37→23:26)
[2019-01-20] MEDS: METHYLPREDNISOLONE SOD SUCC 40 MG/ML VIAL IV SCH ×3 (05:37→20:59)
[2019-01-20 06:37] LABS: HEMATOCRIT. 25.4 % (42.0-52.0); HEMOGLOBIN. 8.3 g/dL (14.0-18.0); MEAN CORPUSCULAR HEMOGLOBIN 26.7 pg (28.0-32.0); MEAN CORPUSCULAR VOLUME 81.3 fL (80.0-94.0); MEAN PLATELET VOLUME 8.3 fl (7.4-10.4); PLATELET 103 x1000/uL (130-400); RED BLOOD CELL COUNT 3.13 mill/uL (4.7-6.1); RED CELL DISTRIBUTION WIDTH 24.3 % (11.6-14.6)
[2019-01-20] MEDS: BLOOD SUGAR DIAGNOSTIC STRIP TEST SCH ×4 (07:40→21:00)
[2019-01-20] MEDS: INSULIN LISPRO 100 UNITS/ML SUBCUT SCH ×4 (08:26→21:11)
[2019-01-20] MEDS: DOCUSATE SODIUM 250MG CAPSULE PO SCH ×3 (09:00→20:56)
[2019-01-20] MEDS: AMLODIPINE 10MG TABLET PO SCH (09:41)
[2019-01-20] MEDS: MULTIVITAMINS,THER W-MINERALS TABLET PO SCH (09:42)
[2019-01-20] MEDS: ISOSORBIDE MONONITRATE 30MG TABLET SR 24HR PO SCH (09:42)
[2019-01-20] MEDS: PHENYTOIN SODIUM EXTENDED 100MG CAPSULE PO SCH ×2 (09:42→20:56)
[2019-01-20] MEDS: PROPRANOLOL HCL 10MG TABLET PO SCH ×2 (09:43→21:08)
[2019-01-20 10:46] LABS: PLATELET ESTIMATE SLIGHTLY DECREASED
[2019-01-21] VITALS (19 sets, daily range): BP systolic 131–162; BP diastolic 69–113
[2019-01-21] MEDS: IPRATROPIUM/ALBUTEROL 0.5-3(2.5)MG/3ML NEB HHN SCH ×5 (00:01→21:15)
[2019-01-21] MEDS: LACTULOSE 20G/30ML UDC PO SCH ×3 (06:00→18:00)
[2019-01-21 07:02] LABS: INR 1.1; PARTIAL THROMBOPLASTIN TIME 29.1 sec (23.4-31.0); PROTHROMBIN TIME 11.4 sec (9.6-11.0)
[2019-01-21 07:10] LABS: BASOPHILS % 0.2 % (0.0-2.0); EOSINOPHILS % 0.2 % (0.0-5.0); HEMATOCRIT. 25.5 % (42.0-52.0); HEMOGLOBIN. 8.3 g/dL (14.0-18.0); LYMPHOCYTES % 8.6 % (20.0-50.0); MEAN CORPUSCULAR HEMOGLOBIN 26.8 pg (28.0-32.0); MEAN CORPUSCULAR VOLUME 82.2 fL (80.0-94.0); MEAN PLATELET VOLUME 7.5 fl (7.4-10.4); MONOCYTES % 9.4 % (2.0-8.0); NEUTROPHILS % 81.6 % (40.0-76.0); PLATELET 90 x1000/uL (130-400); RED CELL DISTRIBUTION WIDTH 25.1 % (11.6-14.6)
[2019-01-21] MEDS: PANTOPRAZOLE 40MG DR TABLET PO SCH (07:30)
[2019-01-21] MEDS: BLOOD SUGAR DIAGNOSTIC STRIP TEST SCH ×4 (07:42→21:00)
[2019-01-21] MEDS: INSULIN LISPRO 100 UNITS/ML SUBCUT SCH ×4 (07:42→22:26)
[2019-01-21] MEDS ORDERED: SODIUM BICARBONATE 4% (2.4MEQ) 5ML VIAL IV ONE (07:59)
[2019-01-21] MEDS ORDERED: LIDOCAINE HCL 1% 20ML VIAL (Pyxis) INJ ONE ×2 (08:00→09:17)
[2019-01-21] MEDS ORDERED: HEPARIN 1000 UNITS/ML 10ML ONE (08:00)
[2019-01-21] MEDS: DOCUSATE SODIUM 250MG CAPSULE PO SCH ×2 (08:04→21:00)
[2019-01-21] MEDS: MULTIVITAMINS,THER W-MINERALS TABLET PO SCH (08:05)
[2019-01-21] MEDS: METHYLPREDNISOLONE SOD SUCC 40 MG/ML VIAL IV SCH ×2 (08:11→21:55)
[2019-01-21] MEDS: PROPRANOLOL HCL 10MG TABLET PO SCH ×2 (09:00→21:59)
[2019-01-21] MEDS ORDERED: FENTANYL CITRATE/PF 50MCG/ML 2ML VIAL ONE (09:03)
[2019-01-21] MEDS ORDERED: CEFAZOLIN 1000MG PREMIX 50 ML IV ONE ×2 (09:03→09:10)
[2019-01-21] MEDS ORDERED: FENTANYL CITRATE/PF 50MCG/ML 2ML VIAL IV ONE (09:10)
[2019-01-21] MEDS: PHENYTOIN SODIUM EXTENDED 100MG CAPSULE PO SCH ×2 (10:06→21:55)
[2019-01-21] MEDS: AMLODIPINE 10MG TABLET PO SCH (10:06)
[2019-01-21] MEDS: ISOSORBIDE MONONITRATE 30MG TABLET SR 24HR PO SCH (10:06)
[2019-01-21] MEDS: ACETAMINOPHEN 325MG TABLET PO PRN (11:55)
[2019-01-22] VITALS (14 sets, daily range): BP systolic 111–163; BP diastolic 57–90
[2019-01-22] MEDS: IPRATROPIUM/ALBUTEROL 0.5-3(2.5)MG/3ML NEB HHN SCH ×3 (00:25→22:42)
[2019-01-22] MEDS: LACTULOSE 20G/30ML UDC PO SCH ×4 (05:32→17:19)
[2019-01-22] MEDS: PANTOPRAZOLE 40MG DR TABLET PO SCH (07:30)
[2019-01-22] MEDS: BLOOD SUGAR DIAGNOSTIC STRIP TEST SCH ×4 (07:30→21:00)
[2019-01-22] MEDS: INSULIN LISPRO 100 UNITS/ML SUBCUT SCH ×4 (08:00→21:00)
[2019-01-22 08:37] LABS: HEMATOCRIT. 23.9 % (42.0-52.0); HEMOGLOBIN. 7.9 g/dL (14.0-18.0); MEAN CORPUSCULAR HEMOGLOBIN 27.2 pg (28.0-32.0); MEAN CORPUSCULAR VOLUME 82.8 fL (80.0-94.0); MEAN PLATELET VOLUME 7.6 fl (7.4-10.4); PLATELET 109 x1000/uL (130-400); RED BLOOD CELL COUNT 2.89 mill/uL (4.7-6.1); RED CELL DISTRIBUTION WIDTH 24.6 % (11.6-14.6)
[2019-01-22] MEDS: DOCUSATE SODIUM 250MG CAPSULE PO SCH ×2 (08:50→21:00)
[2019-01-22] MEDS: PROPRANOLOL HCL 10MG TABLET PO SCH ×2 (09:00→21:00)
[2019-01-22] MEDS: AMLODIPINE 10MG TABLET PO SCH (09:00)
[2019-01-22] MEDS: MULTIVITAMINS,THER W-MINERALS TABLET PO SCH (09:51)
[2019-01-22] MEDS: METHYLPREDNISOLONE SOD SUCC 40 MG/ML VIAL IV SCH (09:51)
[2019-01-22] MEDS: PHENYTOIN SODIUM EXTENDED 100MG CAPSULE PO SCH ×2 (09:51→21:00)
[2019-01-22 09:53] LABS: PLATELET ESTIMATE SLIGHTLY DECREASED
[2019-01-22] MEDS: ACETAMINOPHEN 325MG TABLET PO PRN (09:58)
[2019-01-22] MEDS: ISOSORBIDE MONONITRATE 30MG TABLET SR 24HR PO SCH (13:18)
[2019-01-22] MEDS ORDERED: LIDOCAINE HCL 1% 20ML VIAL (Pyxis) INJ ONE (14:43)
[2019-01-22] MEDS ORDERED: SODIUM BICARBONATE 4% (2.4MEQ) 5ML VIAL IV ONE (14:43)
[2019-01-23] VITALS: BP 140/76
[2019-01-23] MEDS: IPRATROPIUM/ALBUTEROL 0.5-3(2.5)MG/3ML NEB HHN SCH ×4 (04:42→20:24)
[2019-01-23] MEDS: LACTULOSE 20G/30ML UDC PO SCH ×4 (06:00→17:16)
[2019-01-23] MEDS: BLOOD SUGAR DIAGNOSTIC STRIP TEST SCH ×4 (07:30→21:14)
[2019-01-23 08:01] VITALS: BP 142/72
[2019-01-23] MEDS: PHENYTOIN SODIUM EXTENDED 100MG CAPSULE PO SCH ×2 (08:40→21:14)
[2019-01-23] MEDS: DOCUSATE SODIUM 250MG CAPSULE PO SCH ×3 (08:40→21:14)
[2019-01-23] MEDS: ISOSORBIDE MONONITRATE 30MG TABLET SR 24HR PO SCH (08:41)
[2019-01-23] MEDS: GLIPIZIDE 5MG TABLET PO SCH (08:41)
[2019-01-23] MEDS: PANTOPRAZOLE 40MG DR TABLET PO SCH (08:41)
[2019-01-23] MEDS: AMLODIPINE 10MG TABLET PO SCH (08:41)
[2019-01-23] MEDS: PREDNISONE 20MG TABLET PO SCH (08:41)
[2019-01-23] MEDS: MULTIVITAMINS,THER W-MINERALS TABLET PO SCH (09:25)
[2019-01-23] MEDS: ACETAMINOPHEN 325MG TABLET PO PRN (09:26)
[2019-01-23] MEDS: INSULIN LISPRO 100 UNITS/ML SUBCUT SCH ×4 (09:27→21:13)
[2019-01-23] MEDS: PROPRANOLOL HCL 10MG TABLET PO SCH ×2 (09:30→21:14)
[2019-01-23 10:00] VITALS: BP 115/51
[2019-01-23 12:00] VITALS: BP 133/78
[2019-01-23 16:00] VITALS: BP 114/44
[2019-01-23 20:00] VITALS: BP 151/78
[2019-01-24] VITALS: BP 128/70
[2019-01-24] MEDS: IPRATROPIUM/ALBUTEROL 0.5-3(2.5)MG/3ML NEB HHN SCH ×6 (00:13→20:14)
[2019-01-24 04:00] VITALS: BP 142/73
[2019-01-24] MEDS: LACTULOSE 20G/30ML UDC PO SCH ×4 (05:39→18:00)
[2019-01-24] MEDS: BLOOD SUGAR DIAGNOSTIC STRIP TEST SCH ×4 (07:30→21:15)
[2019-01-24 08:00] VITALS: BP 131/71
[2019-01-24] MEDS: INSULIN LISPRO 100 UNITS/ML SUBCUT SCH ×4 (08:00→21:00)
[2019-01-24] MEDS: PHENYTOIN SODIUM EXTENDED 100MG CAPSULE PO SCH ×2 (09:00→21:15)
[2019-01-24] MEDS: ISOSORBIDE MONONITRATE 30MG TABLET SR 24HR PO SCH (09:00)
[2019-01-24] MEDS: GLIPIZIDE 5MG TABLET PO SCH (09:00)
[2019-01-24] MEDS: MULTIVITAMINS,THER W-MINERALS TABLET PO SCH (09:00)
[2019-01-24] MEDS: PROPRANOLOL HCL 10MG TABLET PO SCH ×2 (09:00→21:15)
[2019-01-24] MEDS: PREDNISONE 20MG TABLET PO SCH (09:00)
[2019-01-24] MEDS: AMLODIPINE 10MG TABLET PO SCH (09:00)
[2019-01-24] MEDS: PANTOPRAZOLE 40MG DR TABLET PO SCH (09:00)
[2019-01-24] MEDS: DOCUSATE SODIUM 250MG CAPSULE PO SCH ×2 (09:00→21:15)
[2019-01-24 12:00] VITALS: BP 149/72
[2019-01-24 15:39] VITALS: BP 163/83
[2019-01-25] VITALS (8 sets, daily range): BP systolic 105–173; BP diastolic 70–89
[2019-01-25] MEDS: IPRATROPIUM/ALBUTEROL 0.5-3(2.5)MG/3ML NEB HHN SCH ×4 (05:03→17:00)
[2019-01-25] MEDS: LACTULOSE 20G/30ML UDC PO SCH ×4 (05:52→17:57)
[2019-01-25 07:36] LABS: BASOPHILS % 0.2 % (0.0-2.0); EOSINOPHILS % 1.5 % (0.0-5.0); HEMATOCRIT. 24.8 % (42.0-52.0); HEMOGLOBIN. 8.2 g/dL (14.0-18.0); LYMPHOCYTES % 12.7 % (20.0-50.0); MEAN CORPUSCULAR HEMOGLOBIN 27.3 pg (28.0-32.0); MEAN CORPUSCULAR VOLUME 82.5 fL (80.0-94.0); MEAN PLATELET VOLUME 7.3 fl (7.4-10.4); MONOCYTES % 9.2 % (2.0-8.0); NEUTROPHILS % 76.4 % (40.0-76.0); PLATELET 96 x1000/uL (130-400); RED BLOOD CELL COUNT 3.01 mill/uL (4.7-6.1)
[2019-01-25] MEDS: BLOOD SUGAR DIAGNOSTIC STRIP TEST SCH ×3 (07:50→17:56)
[2019-01-25] MEDS: GLIPIZIDE 5MG TABLET PO SCH (08:27)
[2019-01-25] MEDS: PANTOPRAZOLE 40MG DR TABLET PO SCH (08:27)
[2019-01-25] MEDS: INSULIN LISPRO 100 UNITS/ML SUBCUT SCH ×3 (08:30→19:08)
[2019-01-25] MEDS: DOCUSATE SODIUM 250MG CAPSULE PO SCH ×2 (08:41→08:45)
[2019-01-25] MEDS: PHENYTOIN SODIUM EXTENDED 100MG CAPSULE PO SCH (08:42)
[2019-01-25] MEDS: MULTIVITAMINS,THER W-MINERALS TABLET PO SCH (08:42)
[2019-01-25] MEDS: PREDNISONE 20MG TABLET PO SCH (08:42)
[2019-01-25] MEDS: ISOSORBIDE MONONITRATE 30MG TABLET SR 24HR PO SCH (08:42)
[2019-01-25] MEDS: PROPRANOLOL HCL 10MG TABLET PO SCH (08:42)
[2019-01-25] MEDS: AMLODIPINE 10MG TABLET PO SCH (10:15)
[2019-01-25] MEDS ORDERED: HEPARIN SODIUM 1,000 UNIT/1ML VIAL IV SCH (14:45)
== END 2019-01-25 19:17 | DRG 871 ==
LOC: ER 08:28 → CVICU 09:35 → ENRESERV 10:32 → 5EST 01-15 17:02
PROVIDERS: ADMIT Internal Medicine; ATTEND Internal Medicine
PROC: 02HV33Z Insertion of Infusion Device into Superior Vena Cava, Percutaneous Approach (ICD-10-PCS; principal; 2019-01-12)
PROC: B548ZZA Ultrasonography of Superior Vena Cava, Guidance (ICD-10-PCS; 2019-01-12)
PROC: 5A09357 Assistance with Respiratory Ventilation, Less than 24 Consecutive Hours, Continuous Positive Airway Pressure (ICD-10-PCS; 2019-01-12)
PROC: 0W993ZZ Drainage of Right Pleural Cavity, Percutaneous Approach (ICD-10-PCS; 2019-01-13)
PROC: 5A09357 Assistance with Respiratory Ventilation, Less than 24 Consecutive Hours, Continuous Positive Airway Pressure (ICD-10-PCS; 2019-01-13)
PROC: 0W9G3ZZ Drainage of Peritoneal Cavity, Percutaneous Approach (ICD-10-PCS; 2019-01-14)
PROC: 5A09357 Assistance with Respiratory Ventilation, Less than 24 Consecutive Hours, Continuous Positive Airway Pressure (ICD-10-PCS; 2019-01-14)
PROC: 5A09357 Assistance with Respiratory Ventilation, Less than 24 Consecutive Hours, Continuous Positive Airway Pressure (ICD-10-PCS; 2019-01-17)
PROC: 02HV33Z Insertion of Infusion Device into Superior Vena Cava, Percutaneous Approach (ICD-10-PCS; 2019-01-18)
PROC: B548ZZA Ultrasonography of Superior Vena Cava, Guidance (ICD-10-PCS; 2019-01-18)
PROC: B5181ZA Fluoroscopy of Superior Vena Cava using Low Osmolar Contrast, Guidance (ICD-10-PCS; 2019-01-18)
PROC: 5A09357 Assistance with Respiratory Ventilation, Less than 24 Consecutive Hours, Continuous Positive Airway Pressure (ICD-10-PCS; 2019-01-18)
PROC: 5A1D70Z Performance of Urinary Filtration, Intermittent, Less than 6 Hours Per Day (ICD-10-PCS; 2019-01-18)
PROC: 30233N1 Transfusion of Nonautologous Red Blood Cells into Peripheral Vein, Percutaneous Approach (ICD-10-PCS; 2019-01-19)
PROC: 5A09357 Assistance with Respiratory Ventilation, Less than 24 Consecutive Hours, Continuous Positive Airway Pressure (ICD-10-PCS; 2019-01-19)
PROC: 5A1D70Z Performance of Urinary Filtration, Intermittent, Less than 6 Hours Per Day (ICD-10-PCS; 2019-01-19)
PROC: 5A09357 Assistance with Respiratory Ventilation, Less than 24 Consecutive Hours, Continuous Positive Airway Pressure (ICD-10-PCS; 2019-01-20)
PROC: 0JH63XZ Insertion of Tunneled Vascular Access Device into Chest Subcutaneous Tissue and Fascia, Percutaneous Approach (ICD-10-PCS; 2019-01-21)
PROC: 02HV33Z Insertion of Infusion Device into Superior Vena Cava, Percutaneous Approach (ICD-10-PCS; 2019-01-21)
PROC: B5181ZA Fluoroscopy of Superior Vena Cava using Low Osmolar Contrast, Guidance (ICD-10-PCS; 2019-01-21)
PROC: 5A1D70Z Performance of Urinary Filtration, Intermittent, Less than 6 Hours Per Day (ICD-10-PCS; 2019-01-21)
PROC: 0W9G3ZZ Drainage of Peritoneal Cavity, Percutaneous Approach (ICD-10-PCS; 2019-01-22)
PROC: 02PYX3Z Removal of Infusion Device from Great Vessel, External Approach (ICD-10-PCS; 2019-01-22)
PROC: 5A1D70Z Performance of Urinary Filtration, Intermittent, Less than 6 Hours Per Day (ICD-10-PCS; 2019-01-24)
DX: A41.9 Sepsis, unspecified organism (principal); J96.21 Acute and chronic respiratory failure with hypoxia; J18.9 Pneumonia, unspecified organism; R65.21 Severe sepsis with septic shock; G92 Toxic encephalopathy; N17.0 Acute kidney failure with tubular necrosis; J96.22 Acute and chronic respiratory failure with hypercapnia; I50.33 Acute on chronic diastolic (congestive) heart failure; J44.1 Chronic obstructive pulmonary disease with (acute) exacerbation; R18.8 Other ascites; I13.0 Hypertensive heart and chronic kidney disease with heart failure and stage 1 through stage 4 chronic kidney disease, or unspecified chronic kidney disease; J44.0 Chronic obstructive pulmonary disease with (acute) lower respiratory infection; J91.8 Pleural effusion in other conditions classified elsewhere; E46 Unspecified protein-calorie malnutrition; R31.9 Hematuria, unspecified; F32.9 Major depressive disorder, single episode, unspecified; R00.1 Bradycardia, unspecified; E11.22 Type 2 diabetes mellitus with diabetic chronic kidney disease; K72.90 Hepatic failure, unspecified without coma; D64.9 Anemia, unspecified; N18.9 Chronic kidney disease, unspecified; B18.2 Chronic viral hepatitis C; D69.6 Thrombocytopenia, unspecified; E78.00 Pure hypercholesterolemia, unspecified; E78.5 Hyperlipidemia, unspecified; I27.20 Pulmonary hypertension, unspecified; K74.60 Unspecified cirrhosis of liver; Z79.84 Long term (current) use of oral hypoglycemic drugs; Z79.899 Other long term (current) drug therapy; Z87.891 Personal history of nicotine dependence; Z99.81 Dependence on supplemental oxygen; Z79.82 Long term (current) use of aspirin; Z68.26 Body mass index [BMI] 26.0-26.9, adult
CPT/HCPCS: 32555; 36415; 36558; 36569; 36589; 36600; 49083; 71045; 76705; 76770; 76937; 77001; 80048; 80185; 80202; 80305; 80320; 82043; 82140; 82375; 82550; 82553; 82570; 82575; 82805; 82962; 83605; 83735; 83880; 84100; 84156; 84300; 84443; 84484; 86705; 86706; 86709; 86803; 86850; 86900; 86920; 87340; 93005; 93306; 94640; 94660; 96374; 96375; 97110; 97162; 99152; 99153; 99285; A6261; C1725; C1750; C1752; C1769; J0461; J0610; J0690; J0696; J1265; J1644; J1815; J1940; J2543; J2920; J2930; J3010; J3370; J3490; J7030; J7050; J7060; J7512; J7620; P9021; A4315; G0480; G0500